=== PATIENT | male | born 1985 | race Caucasian/White ===

== ENCOUNTER 2017-12-10 11:44 | Emergency (ER) | payer MEDICAID ==
[~2017-12-10] VITALS: Ht 177.8 cm; Wt 83.0 kg
[2017-12-10] MEDS ORDERED: LEVETIRACETAM 1000MG/100ML 100 ML IV ONE (13:00)
[2017-12-10 13:10] LABS: CHLORIDE 103 mEq/L (98-107)
[2017-12-10 13:11] LABS: BASOPHILS % 0.2 % (0.0-2.0); EOSINOPHILS % 1.3 % (0.0-5.0); HEMOGLOBIN. 15.4 g/dL (14.0-18.0); LYMPHOCYTES % 34.5 % (20.0-50.0); MEAN CORPUSCULAR HEMOGLOBIN 32.1 pg (28.0-32.0); MEAN CORPUSCULAR VOLUME 93.7 fL (80.0-94.0); MEAN PLATELET VOLUME 9.3 fl (7.4-10.4); MONOCYTES % 9.5 % (2.0-8.0); NEUTROPHILS % 54.5 % (40.0-76.0); PLATELET 143 x1000/uL (130-400); RED CELL DISTRIBUTION WIDTH 13.3 % (11.6-14.6)
[2017-12-10 13:17] LABS: CLARITY URINE CLEAR (CLEAR); COLOR URINE YELLOW (YELLOW); KETONES URINE NEGATIVE (NEGATIVE); LEUKOCYTE ESTERASE URINE NEGATIVE (NEGATIVE); NITRITE URINE NEGATIVE (NEGATIVE); OCCULT BLOOD URINE NEGATIVE (NEGATIVE); PROTEIN URINE NEGATIVE (NEGATIVE); SPECIFIC GRAVITY URINE 1.009 (1.005-1.030); UROBILINOGEN URINE 0.2 E.U./dL (0.2-1.0)
[2017-12-10 15:11] VITALS: BP 112/74
== END 2017-12-10 15:24 | disposition home or self-care (01) ==
LOC: ER 11:44
DX: G40.909 Epilepsy, unspecified, not intractable, without status epilepticus (principal); Z91.14 Patient's other noncompliance with medication regimen; S00.81XA Abrasion of other part of head, initial encounter; X58.XXXA Exposure to other specified factors, initial encounter; Y93.89 Activity, other specified; Y92.480 Sidewalk as the place of occurrence of the external cause; F15.10 Other stimulant abuse, uncomplicated; Z72.0 Tobacco use
CPT/HCPCS: 36415; 70450; 80053; 81003; 82962; 85025; 96365; 99285; J1953

== ENCOUNTER 2018-08-10 09:58 | Emergency (ER) | payer MEDICAID ==
[~2018-08-10] VITALS: Ht 182.9 cm; Wt 78.0 kg
[2018-08-10] MEDS ORDERED: LEVETIRACETAM 1000MG/100ML 100 ML IV ONE (11:00)
[2018-08-10 11:25] LABS: CLARITY URINE CLEAR (CLEAR); COLOR URINE YELLOW (YELLOW); KETONES URINE NEGATIVE (NEGATIVE); LEUKOCYTE ESTERASE URINE NEGATIVE (NEGATIVE); NITRITE URINE NEGATIVE (NEGATIVE); OCCULT BLOOD URINE NEGATIVE (NEGATIVE); PROTEIN URINE NEGATIVE (NEGATIVE); SPECIFIC GRAVITY URINE 1.003 (1.005-1.030); UROBILINOGEN URINE 0.2 E.U./dL (0.2-1.0)
[2018-08-10 11:31] LABS: BASOPHILS % 0.2 % (0.0-2.0); EOSINOPHILS % 0.5 % (0.0-5.0); HEMATOCRIT. 44.1 % (42.0-52.0); HEMOGLOBIN. 14.8 g/dL (14.0-18.0); LYMPHOCYTES % 20.2 % (20.0-50.0); MEAN CORPUSCULAR HEMOGLOBIN 31.9 pg (28.0-32.0); MEAN CORPUSCULAR VOLUME 95.1 fL (80.0-94.0); MEAN PLATELET VOLUME 9.5 fl (7.4-10.4); MONOCYTES % 10.1 % (2.0-8.0); PLATELET 131 x1000/uL (130-400); RED BLOOD CELL COUNT 4.64 mill/uL (4.7-6.1); RED CELL DISTRIBUTION WIDTH 13.9 % (11.6-14.6)
[2018-08-10 11:35] LABS: CHLORIDE 107 mEq/L (98-107)
[2018-08-10 11:40] LABS: ETHANOL BLOOD < 10 mg/dL
[2018-08-10 11:50] LABS: *AMPHETAMINES SCREEN URINE NEGATIVE (NEGATIVE); *BARBITURATES SCREEN URINE NEGATIVE (NEGATIVE); *BENZODIAZEPINES SCREEN URINE NEGATIVE (NEGATIVE); CANNABINOID URINE SCREEN NEGATIVE (NEGATIVE)
[2018-08-10 11:51] LABS: METHADONE URINE SCREEN NEGATIVE (NEGATIVE); OPIATES URINE SCREEN NEGATIVE (NEGATIVE)
[2018-08-10 11:54] LABS: *COCAINE SCREEN URINE NEGATIVE (NEGATIVE)
[2018-08-10 11:55] LABS: PHENCYCLIDINE URINE SCREEN NEGATIVE (NEGATIVE)
[2018-08-10] MEDS ORDERED: SODIUM CHLORIDE 0.9% 1,000 ML IV ONE ×2 (13:00→13:45)
[2018-08-11 16:35] VITALS: BP 104/59
== END 2018-08-11 17:19 | disposition left against medical advice (07) ==
LOC: ER 09:58
DX: G40.909 Epilepsy, unspecified, not intractable, without status epilepticus (principal); F15.10 Other stimulant abuse, uncomplicated; Z87.891 Personal history of nicotine dependence
CPT/HCPCS: 36415; 80053; 80305; 80320; 81003; 82962; 85025; 96365; 99283; J1953; J7030; Z7610; G0480